=== PATIENT | female | born 1995 | race Caucasian/White ===

== ENCOUNTER 2020-04-18 16:42 | Emergency (ER) | payer OTHER, SELFPAY ==
[2020-04-18 16:57] VITALS: BP 121/88; PULSE 78; RESP 18; TEMP 37.2; O2SAT 98
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
[2020-04-18] MEDS: traMADol 50 MG TAB PO (18:25)
== END 2020-04-18 18:40 | disposition home or self-care (01) ==
PROVIDERS: Emergency Provider Registered Nurse Emergency
DX: S42.021A Displaced fracture of shaft of right clavicle, initial encounter for closed fracture (principal); V18.0XXA Pedal cycle driver injured in noncollision transport accident in nontraffic accident, initial encounter; Y93.55 Activity, bike riding
CPT/HCPCS: 23500; 81025; 99253; 99282; 73030; 99281; L3650